=== PATIENT | male | born 1975 | race Caucasian/White ===

== ENCOUNTER 2019-12-22 06:38 | Emergency (ER) | payer SELFPAY ==
[~2019-12-22] VITALS: Ht 180.3 cm; Wt 69.0 kg
[2019-12-22] MEDS ORDERED: KETOROLAC 30 MG/ML VIAL. IVP ONE (07:15)
[2019-12-22] MEDS ORDERED: ONDANSETRON PF 4 MG/2 ML VIAL. IVP ONE (07:15)
--- NOTE | 2019-12-22 07:15 | PHYS DOC ---
General Adult EDM: Chief Complaint: FLANK PAIN HPI: HPI: Sudden onset left flank pain. Patient woke up around 2:30 AM with this pain. The pain is a deep cramping moderate to severe in intensity. It is radiating around into the left groin and he has pain in his testicle and penis. He denies any discharge. He is not concerned about STD. He was feeling completely normal yesterday no history of kidney stones. He did have a right inguinal hernia repaired a year ago. He was lifting some bottled water and a couple bags of soil yesterday, but not feel like he did anything overly stressful. He felt fine when he went to bed. Patient denies fever chills. No history of UTIs. Review of Systems: Review of Systems: Constitutional: Denies fever or chills Eyes: Denies change in visual acuity HENT: Denies nasal congestion or sore throat Respiratory: Denies cough or shortness of breath Cardiovascular: Denies chest pain or edema GI: Denies abdominal pain, nausea, vomiting, bloody stools or diarrhea : Denies dysuria Musculoskeletal: Left flank pain Integument: Denies rash Neurologic: Denies headache, focal weakness or sensory changes Endocrine: Denies polyuria or polydipsia Lymphatic: Denies swollen glands Psychiatric: Denies depression or anxiety Heart Score: Risk Factors: Risk Factors: DM, Current or recent (<one month) smoker, HTN, HLP, family history of CAD, obesity. Risk Scores: Score 0 - 3: 2.5% MACE over next 6 weeks - Discharge Home Score 4 - 6: 20.3% MACE over next 6 weeks - Admit for Clinical Observation Score 7 - 10: 72.7% MACE over next 6 weeks - Early Invasive Strategies Current Medications: Current Meds: Current Medications Medications (Trade) Dose Ordered Sig/[facility] Start Time Stop Time Status Last Admin Dose Admin Ketorolac Tromethamine (Toradol 30mg Vial) 30 mg 1X ONCE 12/22/19 07:15 12/22/19 07:16 UNV Ondansetron HCl (Zofran) 4 mg 1X ONCE 12/22/19 07:15 12/22/19 07:16 UNV Physical Exam: PE: Constitutional: Well developed, well nourished, mild acute distress, non-toxic appearance. [] HENT: Normocephalic, atraumatic, bilateral external ears normal, oropharynx moist, no oral exudates, nose normal. [] Eyes: PERRLA, EOMI, conjunctiva normal, no discharge. [] Neck: Normal range of motion, no tenderness, supple, no stridor. [] Cardiovascular: Heart rate regular rhythm, no murmur [] Lungs & Thorax: Bilateral breath sounds clear to auscultation [] Abdomen: Bowel sounds normal, soft, no tenderness, no masses, no pulsatile masses. [] Skin: Warm, dry, no erythema, no rash. [] Back: No tenderness, left-sided CVA tenderness. [] Extremities: No tenderness, no cyanosis, no clubbing, ROM intact, no edema. [] Neurologic: Alert and oriented X 3, normal motor function, normal sensory function, no focal deficits noted. [] Psychologic: Affect normal, judgement normal, mood normal. [] EKG: EKG: [] Radiology/Procedures: Radiology/Procedures: [] Impressions: Study: CT abdomen/pelvis without intravenous contrast Indication: Flank pain. Comparison: None. Technique: Helical CT imaging performed of the abdomen and pelvis without the use of intravenous contrast. Sagittal and coronal reformats were obtained. One or more of the following individualized dose reduction techniques were utilized for this examination: 1. Automated exposure control 2. Adjustment of the mA and/or kV according to patient size 3. Use of iterative reconstruction technique. Findings: Inherently limited evaluation without intravenous contrast. Chest: No concerning abnormality. Liver: Within normal limits. Gallbladder/Biliary Tree: Unremarkable. Pancreas: Unremarkable. Spleen: Unremarkable. Adrenal Glands: Unremarkable. Kidneys/Ureters/Bladder: Several nonobstructing intrarenal stones on the right. No collecting system dilatation. On the left mild hydroureteronephrosis in the setting of a 2 mm nephrolithiasis at the ureterovesicular junction on image 126 series 2. Several punctate intrarenal stones also present on the left. Edematous enlargement of the left kidney relative to the right with mild perinephric fat stranding. Reproductive Organs: Unremarkable. Colon: Within normal limits. Appendix: Unremarkable. Small Bowel: Unremarkable. Stomach: Unremarkable. Vasculature: Mild calcific atherosclerosis at the distal abdominal aorta. Nonaneurysmal aorta. Lymph Nodes: None suspicious by size criteria. Peritoneum and Body Wall: No acute abnormality. Bones: Mild levocurvature of the lumbar spine. Maintained vertebral body and disc space height. Minimal lower lumbar facet degeneration. Miscellaneous: None. Impression: 1. Mild hydroureteronephrosis on the left in addition to edematous enlargement of the left kidney in the setting of an obstructing 2 mm stone at the ureterovesicular junction. 2. Numerous punctate intrarenal stones bilaterally. No collecting system dilatation on the right. Electronically signed by: DAVE BENITEZ MD (12/22/2019 7:42 AM) [id number] DICTATED AND SIGNED BY: DAVE BENITEZ MD DATE: 12/22/1941 CC: ARCHANA CONTRERAS DO; PCP,NO ~ Course & Med Decision Making: Course & Med Decision Making Pertinent Labs and Imaging studies reviewed. (See chart for details) The patient's labs are unremarkable. His urinalysis is negative for infection. His CT scan does show an obstructing stone at the ureterovesicular junction. It is 2 mm in size. This is likely to pass. I will discharge the patient with [place] 5/325 Flomax. He is stable for discharge at this time. If his condition does not improve, he will follow-up with urology. [] Joceline Disclaimer: Dragon Disclaimer: This electronic medical record was generated, in whole or in part, using a voice recognition dictation system. Departure Departure: Impression: Primary Impression: Kidney stone on left side Disposition: 01 HOME, SELF-CARE Condition: STABLE Referrals: PCP,RAMIREZ (PCP) Patient Instructions: Kidney Stones, Qvyc-[id number] Scripts Tamsulosin Hcl (FLOMAX) 0.4 Mg Cap.er.24h 0.4 MG PO DAILY for kidney stone for 14 Days, #14 CAP.SR Prov: ARCHANA CONTRERAS DO 12/22/19 Hydrocodone Bit/Acetaminophen ([place] 5-325 TABLET) 1 Each Tablet 1 TAB PO PRN Q6HRS PRN for PAIN, #14 TAB 0 Refills Prov: ARCHANA CONTRERAS DO 12/22/19 ARHCANA CONTRERAS DO Dec 22, 2019 07:15
[2019-12-22 07:39] LABS: BASO # 0.1 x10^3/uL (0.0-0.2); BASO % 1 % (0-3); EOS # 0.4 x10^3/uL (0.0-0.7); EOS % 5 % (0-3); HEMATOCRIT 39.9 % (39.0-53.0); HEMOGLOBIN 13.4 g/dL (13.0-17.5); LYMPH # 2.1 x10^3/uL (1.0-4.8); LYMPH % 30 % (24-48); MEAN CORPUSCULAR HEMOGLOBIN 30 pg (25-35); MEAN CORPUSCULAR HGB CONC 34 g/dL (31-37); MEAN CORPUSCULAR VOLUME 88 fL (79-100); MONO # 0.5 x10^3/uL (0.0-1.1); MONO % 7 % (0-9); NEUT # 3.9 x10^3uL (1.8-7.7); NEUT % 56 % (31-73); PLATELET COUNT 243 x10^3/uL (140-400); RED BLOOD COUNT 4.54 x10^6/uL (4.30-5.70); RED CELL DISTRIBUTION WIDTH 15.3 % (11.5-14.5)
--- NOTE | 2019-12-22 07:45 | RAD ---
Study: CT abdomen/pelvis without intravenous contrast Indication: Flank pain. Comparison: None. Technique: Helical CT imaging performed of the abdomen and pelvis without the use of intravenous contrast. Sagittal and coronal reformats were obtained. One or more of the following individualized dose reduction techniques were utilized for this examination: 1. Automated exposure control 2. Adjustment of the mA and/or kV according to patient size 3. Use of iterative reconstruction technique. Findings: Inherently limited evaluation without intravenous contrast. Chest: No concerning abnormality. Liver: Within normal limits. Gallbladder/Biliary Tree: Unremarkable. Pancreas: Unremarkable. Spleen: Unremarkable. Adrenal Glands: Unremarkable. Kidneys/Ureters/Bladder: Several nonobstructing intrarenal stones on the right. No collecting system dilatation. On the left mild hydroureteronephrosis in the setting of a 2 mm nephrolithiasis at the ureterovesicular junction on image 126 series 2. Several punctate intrarenal stones also present on the left. Edematous enlargement of the left kidney relative to the right with mild perinephric fat stranding. Reproductive Organs: Unremarkable. Colon: Within normal limits. Appendix: Unremarkable. Small Bowel: Unremarkable. Stomach: Unremarkable. Vasculature: Mild calcific atherosclerosis at the distal abdominal aorta. Nonaneurysmal aorta. Lymph Nodes: None suspicious by size criteria. Peritoneum and Body Wall: No acute abnormality. Bones: Mild levocurvature of the lumbar spine. Maintained vertebral body and disc space height. Minimal lower lumbar facet degeneration. Miscellaneous: None. Impression: 1. Mild hydroureteronephrosis on the left in addition to edematous enlargement of the left kidney in the setting of an obstructing 2 mm stone at the ureterovesicular junction. 2. Numerous punctate intrarenal stones bilaterally. No collecting system dilatation on the right. Electronically signed by: DAVE BENITEZ MD (12/22/2019 7:42 AM) [id number]
[2019-12-22 07:47] LABS: BACTERIA,URINE 0 /HPF (0-FEW); BILIRUBIN,URINE NEG (NEG); CLARITY,URINE CLEAR; COLOR,URINE YELLOW; GLUCOSE,URINE NEG (NEG); NITRITE,URINE NEG (NEG); SQUAMOUS EPITHELIAL CELL,UR OCC /LPF; UROBILINOGEN,URINE 0.2 mg/dL (0.2 mg/dL)
[2019-12-22 07:48] LABS: CREATININE 1.1 mg/dL (0.7-1.3); GFR 73.1
[2019-12-22 07:54] LABS: ALBUMIN 3.7 g/dL (3.4-5.0); ALBUMIN/GLOBULIN RATIO 1.1 (1.0-1.7); TOTAL BILIRUBIN 0.2 mg/dL (0.2-1.0); TOTAL PROTEIN 7.2 g/dL (6.4-8.2)
[2019-12-22] MEDS ORDERED: HYDR-3165 PO (07:56)
[2019-12-22] MEDS ORDERED: TAMS0.4C97 PO (07:56)
[2019-12-22] MEDS ORDERED: HYDROcodone/APAP 5/325MG 1 TAB TABLET PO ONE (08:00)
[2019-12-22 08:05] VITALS: BP 111/68
== END 2019-12-22 08:20 | disposition home or self-care (01) ==
LOC: ER 06:38
DX: N13.2 Hydronephrosis with renal and ureteral calculous obstruction (principal)
CPT/HCPCS: 36415; 74176; 80053; 81001; 85025; 96374; 96375; 99284; J1885; J2405